=== PATIENT | male | born 1985 | race Caucasian/White ===

== ENCOUNTER 2016-10-03 03:54 | Emergency (ER) | payer SELFPAY ==
[2016-10-03 04:05] VITALS: BP 124/89; PULSE 70; RESP 20
--- NOTE | 2016-10-03 04:14 | C.PDOC ---
History Of Present Illness A 31 y/o male c/o dental pain for the last 5 months. Pt notes taking Ibuprofen with transient relief of pain. Pt denies difficulty swallowing, difficulty breathing, fever, trauma to the area, facial swelling, or any other complaints. Time Seen by Provider: 10/03/16 03:56 Chief Complaint (Nursing): Dental Pain History Per: Patient, Family, Chief Technician History/Exam Limitations: language barrier Onset/Duration Of Symptoms: Days (5 months) Current Symptoms Are (Timing): Still Present Severity: Mild Quality: Positive for: "Pain" Recent travel outside of the [place]: No Additional History Per: Patient Past Medical History Reviewed: Historical Data, Nursing Documentation, Vital Signs Vital Signs: Last Vital Signs Temp 98 F 10/03/16 04:31 Pulse 70 10/03/16 04:31 Resp 20 10/03/16 04:31 BP 124/89 10/03/16 04:31 Pulse Ox 98 10/03/16 06:22 Family History: States: Unknown Family Hx - Social History Hx Alcohol Use: Yes Hx Substance Use: No Review Of Systems Except As Marked, All Systems Reviewed And Found Negative. Constitutional: Negative for: Fever, Chills, Other (Trauma to the area) ENT: Positive for: Mouth Pain (Dental pain). Negative for: Other (Difficulty swallowing) Respiratory: Negative for: Other (Difficulty breathing) Neurological: Negative for: Numbness (Facial numbness) Physical Exam - Physical Exam Appears: Well, Non-toxic, No Acute Distress Skin: Normal Color, Warm, Dry Head: Atraumatic, Normacephalic Eye(s): bilateral: Normal Inspection, EOMI Nose: Normal Oral Mucosa: Moist Teeth: Caries (Large ar to the last left mandibular molar), Tender To Palpation Gingiva: No Erythema, Swelling, Tender, No Abscess Throat: Normal, No Erythema, No Exudate Neck: Normal ROM, Supple Chest: Symmetrical Cardiovascular: Rhythm Regular, No Murmur Respiratory: Normal Breath Sounds, No Accessory Muscle Use, Other (Speaking in full sentences) Neurological/Psych: Oriented x3, Normal Speech, Normal Cognition, Other (No focal deficit) ED Course And Treatment O2 Sat by Pulse Oximetry: 98 (RA) Pulse Ox Interpretation: Normal Progress Note: Impression:A 31 y/o male c/o dental pain for the last 5 months. Plans: Lidocaine, Ultram, Reassess. Pt is in no acute distress and is improving with the dental pain. Pt was instructed to follow up with dentist within 1-2 days. Disposition - Disposition Referrals: [facility] [Outside] Disposition: HOME/ ROUTINE Disposition Time: 04:12 Condition: STABLE Additional Instructions: Vaya a arzate mdico o la clnica en 1-3 atkins sin falta, para mas evaluacin. [place] los medicamentos nancy indicado. Volver a la horacio de emergencia en cualquier momento si los sntomas persisten o empeoran. Prescriptions: Amoxicillin 875 mg PO BID #14 tablet Naproxen [Naprosyn] 1 tab PO BID PRN #20 tab PRN Reason: Pain Instructions: Toothache (ED) Print Language: MACEDONIAN - Clinical Impression Clinical Impression: Pain, dental - Scribe Statement The provider has reviewed the documentation as recorded by the Scribe Ramesh joaquin All medical record entries made by the Scribe were at my direction and personally dictated by me. I have reviewed the chart and agree that the record accurately reflects my personal performance of the history, physical exam, medical decision making, and the department course for this patient. I have also personally directed, reviewed, and agree with the discharge instructions and disposition.
[2016-10-03 04:33] VITALS: TEMP 98
[2016-10-03 06:14] VITALS: O2SAT 98
== END 2016-10-03 04:34 | disposition home or self-care (01) ==
LOC: C.ER 03:54
DX: K08.89 Other specified disorders of teeth and supporting structures (principal)

== ENCOUNTER 2018-03-15 18:30 | Emergency (ER) | payer SELFPAY ==
[2018-03-15 18:50] VITALS: BP 123/85; PULSE 85; RESP 18; TEMP 98.6; O2SAT 100
[2018-03-15] MEDS ORDERED: Albuterol 0.083% Inhal Sol (2.5 mg/3 mL) UD ONE (19:03)
[2018-03-15] MEDS ORDERED: Albuterol 0.083% Inhal Sol (2.5 mg/3 mL) UD IH STA (19:17)
--- NOTE | 2018-03-15 20:01 | C.PDOC ---
History Of Present Illness 33 year old male presents to the ED for an evaluation of cold like symptoms associated with nasal congestion, dry cough for 10 days. Today, developed some chest tightness with cough. Denies fever, chills, drooling, neck pain, CP,shortness of breath, dyspnea, wheezing, abdominal pain, nausea, vomiting, UTI sx, or any other complaints. Ambulate to Ed for evaluation, not in resp. distress. Occasional dry cough noted. Time Seen by Provider: 03/15/18 18:50 Chief Complaint (Nursing): Cough, Cold, Congestion History Per: Patient History/Exam Limitations: no limitations Onset/Duration Of Symptoms: Days (10) Current Symptoms Are (Timing): Still Present Associated Symptoms: Cough. denies: Fever, Chills, Sore Throat, Nausea, Vomiting, Diarrhea Ear Symptoms: Bilateral: None Past Medical History Reviewed: Historical Data, Nursing Documentation, Vital Signs Vital Signs: Last Vital Signs Temp 98.6 F 03/15/18 18:50 Pulse 85 03/15/18 18:50 Resp 18 03/15/18 18:50 BP 123/85 03/15/18 18:50 Pulse Ox 100 03/15/18 18:50 - Medical History PMH: No Chronic Diseases Surgical History: No Surg Hx Family History: States: No Known Family Hx - Social History Hx Alcohol Use: Yes Hx Substance Use: No - Immunization History Hx Tetanus Toxoid Vaccination: No Hx Influenza Vaccination: No Hx Pneumococcal Vaccination: No Review Of Systems Except As Marked, All Systems Reviewed And Found Negative. Constitutional: Negative for: Fever, Chills ENT: Positive for: Nose Congestion. Negative for: Ear Pain, Throat Pain Cardiovascular: Positive for: Other (chest tightness) Respiratory: Positive for: Cough. Negative for: Shortness of Breath Gastrointestinal: Negative for: Nausea, Vomiting, Abdominal Pain, Diarrhea Musculoskeletal: Negative for: Neck Pain Physical Exam - Physical Exam Appears: Well, Non-toxic, No Acute Distress Skin: Normal Color, Warm, Dry, No Rash Head: Normacephalic Eye(s): bilateral: PERRL Ear(s): Bilateral: Normal Nose: No Flaring, Discharge (B/L scant discharge) Oral Mucosa: Moist, Drooling Tongue: Normal Appearing Lips: Normal Appearing Throat: No Erythema, No Drooling Neck: Trachea Midline, Supple Cardiovascular: Rhythm Regular, No Murmur, No JVD Respiratory: No Decreased Breath Sounds, No Accessory Muscle Use Gastrointestinal/Abdominal: Soft, No Tenderness, No Distention, No Guarding Extremity: Normal ROM, No Deformity Neurological/Psych: Oriented x3, Normal Speech ED Course And Treatment ECG: Interpreted By Me, Viewed By Me ECG Rhythm: Sinus Rhythm ECG Interpretation: Normal Interpretation Of ECG: SR@90/min, NAD, no acute T wave or ST-T changes O2 Sat by Pulse Oximetry: 100 (RA) Pulse Ox Interpretation: Normal - Radiology CXR: Interpreted by Me, Viewed By Me CXR Interpretation: Yes: No Acute Disease Progress Note: On re-eval, pt is afebrile, hemodynamicaly stable. NOn-toxic. PulseOx 100% RA. ENT: no acute findings. neck: SUpple, (-) JVD, (-) carotid bruits B/L. Lungs: CTA B/L, BS equal B/L. CVS: (+)S1S2, reg, (-) murmur. Abd: benign. neuorlogicaly intact. EKG, CXR- normal study. Pt has clinical findings c/w acute bronchitis. Pt advised and ref. to f/u with PMD, Card. in 2-3 days for re-eval. return if any new changes. Disposition Counseled Patient/Family Regarding: Studies Performed, Diagnosis, Need For Followup, Rx Given - Disposition Referrals: [facility] [Outside] Disposition: HOME/ ROUTINE Disposition Time: 19:59 Condition: STABLE Additional Instructions: Encourage fluids Take medication as prescribed Follow up with PMD in 2-3 days for re-evaluation. return to Ed if any worsening or new changes. 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 - Scribe Statement The provider has reviewed the documentation as recorded by the Scribchante Corrales All medical record entries made by the Scribe were at my direction and personally dictated by me. I have reviewed the chart and agree that the record accurately reflects my personal performance of the history, physical exam, medical decision making, and the department course for this patient. I have also personally directed, reviewed, and agree with the discharge instructions and disposition.
--- NOTE | 2018-03-16 08:14 | RAD ---
Date of service: 03/15/2018 HISTORY: Cough COMPARISON: No prior. TECHNIQUE: Chest PA and lateral FINDINGS: LUNGS: No active pulmonary disease. PLEURA: No significant pleural effusion identified. No pneumothorax apparent. CARDIOVASCULAR: No aortic atherosclerotic calcification present. Normal cardiac size. No pulmonary vascular congestion. OSSEOUS STRUCTURES: No significant abnormalities. VISUALIZED UPPER ABDOMEN: Normal. OTHER FINDINGS: None. IMPRESSION: No active disease.
--- NOTE | 2018-03-16 17:09 | CARD ---
APPROVED REPORT Date of service: 03/15/2018 EKG Measurement Heart [id number] MI [id number] <Conclusion> Normal sinus rhythm with sinus arrhythmia Minimal voltage criteria for LVH, may be normal variant Borderline ECG
== END 2018-03-15 20:11 | disposition home or self-care (01) ==
LOC: C.ER 18:30
DX: J40 Bronchitis, not specified as acute or chronic (principal)